=== PATIENT | male | born 1955 | race Caucasian/White ===

== ENCOUNTER 2017-01-02 14:09 | Inpatient (IN) | payer OTHER ==
[~2017-01-02] VITALS: Ht 180.3 cm; Wt 95.6 kg
[~2017-01-02 14:09] MED LIST: AMLODIPINE BESYL5 MG; ASPIR 8181 M1 PO; AZOR 5/40 MG1 TABLET PO; COUMADIN5 MG PO; ENDOCET 5-3251 EACH PO; FLEXERIL10 MG PO; FLUOXETINE HCL20 MG; GLUCOPHAGE1000 MG PO; HYDROCODON-ACE1 EAC5 PO; K-TAB10 MEQ PO; KLOR-CON M1010 MEQ PO; LIVALO2 MG; METFORMIN HCL850 MG PO; NAPROSYN500 MG PO; NAPROXEN500 MG PO; NEXIUM40 MG PO; OMEPRAZOLE20 MG PO; PERCOCET 5/31 TABLET PO; PRAVACHOL40 MG PO; PRAVASTATIN SOD40 MG PO; PROZAC20 MG PO; PROZAC40 MG PO; SIMVASTATIN40 MG PO; TRIAZOLAM0.25 MG PO; VICODIN ES 71 TABLET PO; WARFARIN SODIUM1 MG; WARFARIN SODIUM5 MG; XARELTO20 MG PO; ZOFRAN4 MG PO; ZOLPIDEM TARTRA10 MG
[2017-01-02 15:12] LABS: EOSINOPHIL (%) 1.2 % (0-5); EOSINOPHIL COUNT 0.1 K/uL (0-0.3); HEMATOCRIT 52.4 % (38.0-50.0); IMMATURE GRANULOCYTE (%) 0.5 % (0.0-0.7); IMMATURE GRANULOCYTE COUNT 0.1 K/uL; INSTRUMENT ABS NEUTROPHIL CT 7.7 K/uL; LYMPHOCYTE COUNT 1.3 K/uL (1.0-2.8); MCH 28.2 PG (29.0-34.0); MCHC 30.5 G/DL (30.0-36.0); MCV 92.3 FL (86-99); MEAN PLAT.VOLUME 8.6 uM^3 (9.0-12.4); MONOCYTE COUNT 1.4 K/uL (0-0.8); NEUTROPHIL (%) 72.5 % (45-76); NEUTROPHIL COUNT 7.7 K/uL (1.8-6.4); PLATELET COUNT 348 K/uL (156-360); RBC DIS.WIDTH-CV 14.9 % (11.8-14.6); RBC DIS.WIDTH-SD 50.8 % (39-53); RED BLOOD COUNT 5.68 M/uL (4.00-5.50); WHITE BLOOD COUNT 10.6 K/uL (4.1-10.2)
[2017-01-02 15:29] LABS: CHLORIDE 102 mEq/L (99-109); POTASSIUM 5.6 mEq/L (3.7-5.4); SODIUM 140 mEq/L (136-147)
[2017-01-02 15:31] LABS: GLUCOSE 141 mg/dL (70-99)
[2017-01-02 15:32] LABS: ANION GAP 16 MEQ/L (2-14)
[2017-01-02 15:33] LABS: TOTAL BILIRUBIN 0.3 mg/dL (0.0-1.0)
[2017-01-02 15:34] LABS: ALKALINE PHOSPHATASE 93 IU/L (3-129)
[2017-01-02 15:35] LABS: GFR ESTIMATE (CALCULATED) 41 mL/min/
[2017-01-02 15:36] LABS: UREA NITROGEN (BUN) 19 mg/dL (9-23)
[2017-01-02 15:39] LABS: TROP-I INTERPRETATION NEGATIVE; TROPONIN-I < 0.01 ng/mL (0.0-0.30)
[2017-01-02 15:40] LABS: INTER. NORMALIZED RATIO 4.4
[2017-01-02] MEDS ORDERED: PAXIL40 MG PO (16:26)
[2017-01-02] MEDS ORDERED: SYNTHROID50 MCG PO (16:27)
[2017-01-02] MEDS ORDERED: AZOR 5/40 MG1 TABLET PO (16:27)
[2017-01-02] MEDS ORDERED: HYDROCODON-ACE1 EAC9 PO (16:27)
[2017-01-02] MEDS ORDERED: METOCLOPRAMIDE10 MG PO (16:27)
[2017-01-02 19:23] VITALS: BP 116/72
[2017-01-02 19:40] VITALS: BP 116/76
[2017-01-03 00:01] VITALS: BP 104/72
[2017-01-03 04:17] VITALS: BP 108/63
[2017-01-03 07:25] VITALS: BP 114/68
[2017-01-03 08:15] LABS: POINT-OF-CARE METER ID UU13113698; POINT-OF-CARE USER ID ENVKC36
[2017-01-03 11:13] VITALS: BP 111/62
[2017-01-03 12:09] LABS: POINT-OF-CARE METER ID UU13113698; POINT-OF-CARE USER ID ENVKC36
[2017-01-03 15:43] VITALS: BP 117/71
[2017-01-03 16:33] LABS: POINT-OF-CARE METER ID UU13113781; POINT-OF-CARE USER ID ENVKC36
[2017-01-03 20:03] VITALS: BP 124/71
[2017-01-03 21:28] LABS: POINT-OF-CARE METER ID UU14174216
[2017-01-04] VITALS (7 sets, daily range): BP systolic 101–136; BP diastolic 54–71
[2017-01-04 06:36] LABS: POINT-OF-CARE METER ID UU13113725
[2017-01-04 10:48] LABS: POINT-OF-CARE METER ID UU13113725
[2017-01-04 16:01] LABS: POINT-OF-CARE METER ID UU13113725
[2017-01-04 20:54] LABS: POINT-OF-CARE METER ID UU13113725
[2017-01-05 03:30] VITALS: BP 115/59
[2017-01-05 06:29] LABS: POINT-OF-CARE METER ID UU13113725
[2017-01-05 07:16] VITALS: BP 135/82
[2017-01-05 12:13] VITALS: BP 140/78
[2017-01-05 16:34] VITALS: BP 134/72
[2017-01-05 19:29] VITALS: BP 126/67
[2017-01-05 21:30] LABS: POINT-OF-CARE METER ID UU13113725
[2017-01-05 23:30] VITALS: BP 122/62
[2017-01-06 06:46] LABS: HEMATOCRIT 42.5 % (38.0-50.0); MCH 27.8 PG (29.0-34.0); MCHC 30.8 G/DL (30.0-36.0); MCV 90.2 FL (86-99); MEAN PLAT.VOLUME 8.6 uM^3 (9.0-12.4); PLATELET COUNT 376 K/uL (156-360); RBC DIS.WIDTH-CV 14.6 % (11.8-14.6); RED BLOOD COUNT 4.71 M/uL (4.00-5.50)
[2017-01-06 07:06] LABS: ALKALINE PHOSPHATASE 59 IU/L (3-129); ANION GAP 9 MEQ/L (2-14); CHLORIDE 110 MEQ/L (99-109); GFR ESTIMATE (CALCULATED) > 59 mL/min/; GLUCOSE 146 mg/dL (70-99); POTASSIUM 4.3 MEQ/L (3.7-5.4); SAMPLE HEMOLYSIS CHECK 0; SAMPLE ICTERIC CHECK 0; SAMPLE LIPEMIA CHECK 0; SODIUM 144 MEQ/L (136-147); TOTAL BILIRUBIN 0.3 MG/DL (0.0-1.0); UREA NITROGEN (BUN) 29 mg/dL (9-23)
[2017-01-06 07:20] VITALS: BP 151/77
[2017-01-06 11:59] LABS: POINT-OF-CARE METER ID UU13113725
[2017-01-06 14:58] LABS: POINT-OF-CARE METER ID UU13113725
[2017-01-06 15:40] VITALS: BP 146/69
== END 2017-01-06 19:25 | disposition left against medical advice (07) | DRG 190 ==
LOC: EME 14:09 → EDOF 17:11 → 4EAST 17:11 → ENRESERV 17:12 → 4EAST 19:08 → ENRESERV 01-03 20:10 → 5EAST 01-04 00:29
PROVIDERS: Emergency Medicine; Internal Medicine
DX: J44.0 Chronic obstructive pulmonary disease with (acute) lower respiratory infection (principal); J18.9 Pneumonia, unspecified organism; J44.1 Chronic obstructive pulmonary disease with (acute) exacerbation; N17.9 Acute kidney failure, unspecified; I48.2 Chronic atrial fibrillation; R09.02 Hypoxemia; E11.9 Type 2 diabetes mellitus without complications; E78.5 Hyperlipidemia, unspecified; I10 Essential (primary) hypertension; K21.9 Gastro-esophageal reflux disease without esophagitis; G47.33 Obstructive sleep apnea (adult) (pediatric); F17.210 Nicotine dependence, cigarettes, uncomplicated; R79.1 Abnormal coagulation profile; Z86.718 Personal history of other venous thrombosis and embolism; Z86.711 Personal history of pulmonary embolism; Z79.01 Long term (current) use of anticoagulants; Z68.30 Body mass index [BMI] 30.0-30.9, adult
CPT/HCPCS: 71010; 71020; 80053; 80202; 81003; 82948; 83605; 83880; 84484; 85025; 85027; 85610; 87040; 93005; 94640; 94640 76; 94799; 99202; 99281; 99285; J0456; J1815; J2543; J2920; J3370; J7030; J7050; S0028